=== PATIENT | female | born 2000 | race Hispanic/Latino ===

== ENCOUNTER 2022-01-24 13:08 | Day surgery (SDC) | payer OTHER ==
[2022-01-24] MEDS ORDERED: Acetaminophen 500 MG TAB ONE (13:27)
[2022-01-24] MEDS ORDERED: Acetaminophen 500 MG TAB PO SCH (13:30)
[2022-01-24] MEDS ORDERED: Iron Sucrose Complex 500 MG in Sodium Chloride 0.9% 250 ML 250 ML IVPB SCH (13:30)
== END 2022-01-24 18:20 | disposition home or self-care (01) ==
LOC: CSHSDC/OP 13:08
PROVIDERS: ATTEND Family Medicine
DX: O99.019 Anemia complicating pregnancy, unspecified trimester (principal); D64.9 Anemia, unspecified; Z3A.00 Weeks of gestation of pregnancy not specified
CPT/HCPCS: J1756; J7050

== ENCOUNTER → 2022-04-12 | Day surgery (SDC) | payer OTHER ==
[~2022-04-12] MED LIST: Acetaminophen 500 MG TAB ONE; Acetaminophen 500 MG TAB PO SCH; Iron Sucrose Complex 500 MG in Sodium Chloride 0.9% 250 ML 250 ML IVPB SCH
== END ==
LOC: CSHSDC/OP 13:12
PROVIDERS: ATTEND Student in an Organized Health Care Education/Training Program
DX: O99.019 Anemia complicating pregnancy, unspecified trimester (principal); D64.9 Anemia, unspecified
CPT/HCPCS: J1756; J7050

== ENCOUNTER 2022-05-05 20:31 | Inpatient (IN) | payer OTHER ==
[2022-05-05 21:28] LABS: Hemoglobin 13.7 g/dL (12.0-15.5); Mean Corpuscular HGB CONC 32.3 g/dL (32.0-36.0); Mean Corpuscular Hemoglobin 25.9 pg (27.0-33.0); Mean Corpuscular Volume 80.2 fl (81.6-98.3); Platelet Count 176 10x3/uL (150-450); RBC Distribution Width 21.9 % (11.5-14.5); Red Blood Cell (RBC) Count 5.29 10x6/uL (3.90-5.03); White Blood Cell (WBC) Count 10.2 10x3/uL (3.5-10.5)
[2022-05-05 21:32] VITALS: BMI 22.8
[2022-05-05] MEDS ORDERED: Fentanyl 2 mcg/Bup 0.1% Cadd 100 ML ONE (21:36)
[2022-05-05] MEDS ORDERED: Lidocaine 1% (PF) 30 ML VIAL SC PRN (21:44)
[2022-05-05] MEDS ORDERED: Misoprostol 200 MCG TAB PR PRN (21:44)
[2022-05-05] MEDS ORDERED: hydrALAZINE 20 MG/ML VIAL SLOW IVP PRN (21:44)
[2022-05-05] MEDS ORDERED: Promethazine HCl 25 MG/ML VIAL IM PRN ×2 (21:44→22:31)
[2022-05-05] MEDS ORDERED: Acetaminophen 500 MG TAB PO PRN (21:44)
[2022-05-05] MEDS ORDERED: Diphenoxylate HCl/Atropine Tablet PO PRN (21:44)
[2022-05-05] MEDS ORDERED: Carboprost 250 MCG/ML AMP IM PRN (21:44)
[2022-05-05] MEDS ORDERED: Ondansetron PF 4 MG/2 ML Vial IVP PRN ×2 (21:44→22:31)
[2022-05-05] MEDS ORDERED: Ibuprofen 800 MG TAB PO PRN (21:44)
[2022-05-05] MEDS ORDERED: Tranexamic Acid 1,000 MG in Sodium Chloride 0.9% 250 ML 250 ML IVPB PRN (21:44)
[2022-05-05] MEDS ORDERED: Methylergonovine 0.2 MG/ML VIAL IM PRN (21:44)
[2022-05-05] MEDS ORDERED: NS w/ Oxytocin 30 units 500 ML IV SCH (21:45)
[2022-05-05 21:53] LABS: #Eosinphils 0.2 10x3/uL (0.0-0.5); #Monocytes 0.4 10x3/uL (0.0-1.1); #Neutrophils 8.6 10x3/uL (1.5-8.4); %Basophils 0.2 % (0.0-2.0); %Lymphocytes 11.1 % (18.0-47.0); %Monocytes 3.7 % (0.0-10.0); Hemoglobin 13.7 g/dL (12.0-15.5); Mean Corpuscular HGB CONC 31.8 g/dL (32.0-36.0); Mean Corpuscular Hemoglobin 25.5 pg (27.0-33.0); Mean Corpuscular Volume 80.3 fl (81.6-98.3); Platelet Count 181 10x3/uL (150-450); RBC Distribution Width 21.8 % (11.5-14.5); Red Blood Cell (RBC) Count 5.33 10x6/uL (3.90-5.03); White Blood Cell (WBC) Count 10.3 10x3/uL (3.5-10.5)
[2022-05-05 21:57] LABS: Syphilis Antibody Nonreactive (Nonreactive); Syphilis Antibody Index 0.05 S/CO (<1.00 Non-Reactive)
[2022-05-05 21:58] LABS: HBSAg Index 0.17 S/CO (0-0.99); Hep B Surf Ag Non-Reactive S/CO (NonReactive)
[2022-05-05 22:07] LABS: ALT (SGPT) 7 U/L (8-55); AST (SGOT) 17 U/L (5-34); Albumin 3.9 g/dL (3.5-5.0); Anion Gap 20 mmol/L (10-20); BUN (Urea Nitrogen) 14 mg/dL (7.0-18.7); Bilirubin, Total 0.3 mg/dL (0.2-1.2); Calc. Creatinine Clearance 0 mL/min (70-130); Calcium 9.2 mg/dL (7.8-10.44); Chloride 109 mmol/L (98-107); Estimated GFR 128; Globulin 2.8 g/dL (2.4-3.5); Glucose 85 mg/dL (70-105); Potassium 3.9 mmol/L (3.5-5.1); Protein, Total 6.7 g/dL (6.0-8.3); Sodium 138 mmol/L (136-145)
[2022-05-05 22:13] LABS: Alkaline Phosphatase 259 U/L (40-100); Carbon Dioxide 13 mmol/L (22-29)
[2022-05-05] MEDS ORDERED: diphenhydrAMINE 50 MG/ML VIAL IVP PRN (22:31)
[2022-05-05] MEDS ORDERED: Lactated Ringer's 500 ML IV PRN (22:31)
[2022-05-05] MEDS ORDERED: Naloxone HCl 0.4 mg/ml Vial IVP PRN ×2 (22:31)
[2022-05-05] MEDS ORDERED: ePHEDrine Sulfate 50 MG/10 ML VIAL SLOW IVP PRN (22:31)
[2022-05-05] MEDS ORDERED: Moisturizing Cream (Eucerin) 113 GM JAR TOP PRN (22:31)
[2022-05-05] MEDS ORDERED: Communication Order-Pharmacy FS SCH (22:45)
[2022-05-05] MEDS ORDERED: Fentanyl 2 mcg/Bupivacaine 0.1% Cassette 100 ML EPIDURAL SCH (22:45)
[2022-05-05 23:55] LABS: SARS-CoV-2 NAA Rapid Test Not Detected (NotDetected)
[2022-05-06 03:03] LABS: Creatinine, Urine 170.56 mg/dL (47-110)
[2022-05-06] MEDS: Acetaminophen 325 MG TAB PO PRN ×2 (05:44→18:35)
[2022-05-06] MEDS ORDERED: Gentamicin Sulfate 320 MG in Sodium Chloride 0.9% 100 ML IVPB SCH ×2 (05:45→06:00)
[2022-05-06] MEDS ORDERED: Ampicillin 2 GM in Sodium Chloride 0.9% 100 ML IVPB SCH ×2 (05:45→06:00)
[2022-05-06] MEDS ORDERED: Gentamicin Sulfate 80 MG in Premix Bag 1 BAG IVPB SCH (06:00)
[2022-05-06] MEDS ORDERED: Gentamicin 80 MG/2 ML VIAL IVPB SCH (06:00)
[2022-05-06] MEDS ORDERED: Boostrix 0.5 ML (Tdap) VIAL (>/=7 yrs of age) IM ONE (07:57)
[2022-05-06] MEDS ORDERED: Bisacodyl 10 MG SUPP PR PRN (07:57)
[2022-05-06] MEDS ORDERED: Benzocaine-Menthol 82.5 ML CAN TOP PRN (07:57)
[2022-05-06] MEDS ORDERED: Milk Of Magnesia 30 ML UDCUP PO PRN (07:57)
[2022-05-06] MEDS: Docusate 100 MG CAP PO SCH ×2 (09:20→21:41)
[2022-05-06] MEDS: Prenatal Vitamin 1 TAB PO SCH (09:21)
[2022-05-06] MEDS: Ferrous Sulfate 325 MG TAB PO SCH ×2 (09:21→16:07)
[2022-05-06] MEDS: Ibuprofen 800 MG TAB PO SCH ×2 (09:39→16:06)
[2022-05-07] MEDS: Ibuprofen 800 MG TAB PO SCH ×3 (00:15→17:46)
[2022-05-07 04:39] LABS: Hemoglobin 9.7 g/dL (12.0-15.5)
[2022-05-07] MEDS: Acetaminophen 325 MG TAB PO PRN (04:52)
[2022-05-07] MEDS: Docusate 100 MG CAP PO SCH ×2 (10:09→21:43)
[2022-05-07] MEDS: Prenatal Vitamin 1 TAB PO SCH (10:09)
[2022-05-07] MEDS: Ferrous Sulfate 325 MG TAB PO SCH ×2 (10:10→17:46)
[2022-05-07 19:55] VITALS: TEMP 98.7
[2022-05-08] MEDS: Ibuprofen 800 MG TAB PO SCH ×2 (01:25→08:59)
[2022-05-08 07:49] VITALS: BP 110/71
[2022-05-08] MEDS: Prenatal Vitamin 1 TAB PO SCH (08:58)
[2022-05-08] MEDS: Ferrous Sulfate 325 MG TAB PO SCH (08:58)
[2022-05-08] MEDS: Docusate 100 MG CAP PO SCH (08:59)
[2022-05-08] MEDS: Acetaminophen 325 MG TAB PO PRN (09:01)
== END 2022-05-08 13:00 | disposition home or self-care (01) | DRG 805 ==
LOC: CSHLD/OP 20:31 → CSHLD 21:31 → CSHPP 05-06 08:50
PROVIDERS: ADMIT Student in an Organized Health Care Education/Training Program; ATTEND Student in an Organized Health Care Education/Training Program
PROC: 0KQM0ZZ Repair Perineum Muscle, Open Approach (ICD-10-PCS; principal; 2022-05-06)
PROC: 10E0XZZ Delivery of Products of Conception, External Approach (ICD-10-PCS; 2022-05-06)
PROC: 10907ZC Drainage of Amniotic Fluid, Therapeutic from Products of Conception, Via Natural or Artificial Opening (ICD-10-PCS; 2022-05-06)
PROC: 0UQMXZZ Repair Vulva, External Approach (ICD-10-PCS; 2022-05-06)
DX: O99.02 Anemia complicating childbirth (principal); O41.1230 Chorioamnionitis, third trimester, not applicable or unspecified; Z37.0 Single live birth; O70.1 Second degree perineal laceration during delivery; O12.15 Gestational proteinuria, complicating the puerperium; D64.9 Anemia, unspecified; Z20.822 Contact with and (suspected) exposure to COVID-19; Z3A.40 40 weeks gestation of pregnancy; Z79.899 Other long term (current) drug therapy; Z98.890 Other specified postprocedural states; O69.89X0 Labor and delivery complicated by other cord complications, not applicable or unspecified
CPT/HCPCS: 36415; 51702; 80053; 82570; 84156; 85014; 85018; 85027; 86780; 86850; 86900; 86901; 87340; 99285; J0290; J1580; J2590; J3490; U0002